=== PATIENT | female | born 1995 | race Caucasian/White ===

== ENCOUNTER 2018-03-03 23:09 | Outpatient (CLI) | payer OTHER ==
[~2018-03-03 23:09] MED LIST: AMBIEN10 MG PO; CLONIDINE HCL0.1 MG PO; MOTRIN800 MG PO; PROZAC20 MG PO; VALIUM2 MG PO; VYVANSE60 MG PO
[2018-03-03 23:30] VITALS: BP 107/68
[2018-03-04 00:33] VITALS: BP 103/68
== END 2018-03-04 01:50 | disposition home or self-care (01) ==
LOC: LDRP-OP 23:09 → 2WEST 23:11
DX: O47.02 False labor before 37 completed weeks of gestation, second trimester (principal); O99.342 Other mental disorders complicating pregnancy, second trimester; F41.9 Anxiety disorder, unspecified; F32.9 Major depressive disorder, single episode, unspecified; O99.332 Smoking (tobacco) complicating pregnancy, second trimester; F17.200 Nicotine dependence, unspecified, uncomplicated; O99.212 Obesity complicating pregnancy, second trimester; E66.9 Obesity, unspecified; Z68.41 Body mass index [BMI] 40.0-44.9, adult; Z3A.24 24 weeks gestation of pregnancy
CPT/HCPCS: 59025; G0378

== ENCOUNTER → 2018-04-05 | Outpatient (CLI) | payer OTHER ==
[~2018-04-05] VITALS: Ht 162.6 cm; Wt 119.0 kg
[~2018-04-05] MED LIST changes: +PRENATAL TABLE1 EAC3 PO
[2018-04-05 16:40] VITALS: BP 118/73
== END | disposition home or self-care (01) ==
LOC: IVINF 16:00
DX: Z34.83 Encounter for supervision of other normal pregnancy, third trimester (principal); Z31.82 Encounter for Rh incompatibility status; Z3A.28 28 weeks gestation of pregnancy; Z67.41 Type O blood, Rh negative
CPT/HCPCS: 96372; J2790

== ENCOUNTER 2018-06-26 16:59 | Inpatient (IN) | payer OTHER ==
[~2018-06-26] VITALS: Ht 162.6 cm; Wt 121.1 kg
[2018-06-26] VITALS (10 sets, daily range): BP systolic 124–159; BP diastolic 58–101
[2018-06-26 18:12] LABS: BASOPHIL (%) 0.2 % (0-1); EOSINOPHIL (%) 0.1 % (0-5); HEMOGLOBIN 11.8 G/DL (11.9-15.5); IMMATURE GRANULOCYTE (%) 0.4 % (0.0-0.7); LYMPHOCYTE (%) 15.1 % (15-42); LYMPHOCYTE COUNT 2.6 K/uL (1.0-2.8); MCH 27.9 PG (29.0-34.0); MCHC 32.8 G/DL (30.0-36.0); MCV 85.1 FL (83-99); MONOCYTE (%) 5.5 % (3-12); NEUTROPHIL (%) 78.7 % (45-76); NEUTROPHIL COUNT 13.7 K/uL (1.8-6.4); PLATELET COUNT 283 K/uL (156-360); RBC DIS.WIDTH-CV 14.6 % (11.8-14.6); RBC DIS.WIDTH-SD 44.6 % (39-53); RED BLOOD COUNT 4.23 M/uL (3.80-5.20); WHITE BLOOD COUNT 17.4 K/uL (4.1-10.2)
[2018-06-26 18:20] LABS: ALBUMIN 3.6 g/dL (3.2-4.8)
[2018-06-26 18:21] LABS: CHLORIDE 106 mEq/L (99-109); POTASSIUM 3.6 mEq/L (3.7-5.4); SODIUM 139 mEq/L (136-147)
[2018-06-26 18:23] LABS: GLUCOSE 107 mg/dL (70-99); TOTAL PROTEIN 7.2 g/dL (6.4-8.3)
[2018-06-26 18:25] LABS: TOTAL BILIRUBIN 0.3 mg/dL (0.0-1.0)
[2018-06-26 18:26] LABS: ALKALINE PHOSPHATASE 188 IU/L (3-129)
[2018-06-26 18:27] LABS: CREATININE 0.7 mg/dL (0.6-1.3); GFR ESTIMATE (CALCULATED) > 59 mL/min/
[2018-06-26 18:28] LABS: UREA NITROGEN (BUN) 8 mg/dL (9-23)
[2018-06-26 18:29] LABS: AST (GOT) 12 IU/L (2-34)
[2018-06-26 18:30] LABS: ALT (GPT) 8 IU/L (3-49)
[2018-06-26] MEDS ORDERED: MOTRIN800 MG PO (18:40)
[2018-06-26 19:20] LABS: THC CANNABINOIDS NEGATIVE (50 ng/mL)
[2018-06-26 19:21] LABS: AMPHETAMINE NEGATIVE (500 ng/mL); BARBITURATES NEGATIVE (200 ng/mL); BENZODIAZEPINES NEGATIVE (150 ng/mL); BUPRENORPHINE NEGATIVE (10 ng/mL); COCAINE NEGATIVE (150 ng/mL); METHADONE NEGATIVE (200 ng/mL); METHAMPHETAMINE NEGATIVE (500 ng/mL); OPIATES (MORPHINE) NEGATIVE (100 ng/mL); OXYCODONE NEGATIVE (100 ng/mL); PHENCYCLIDINE NEGATIVE (25 ng/mL); PROPOXYPHENE NEGATIVE (300 ng/mL); TRICYCLIC ANTIDEPRESSANTS NEGATIVE (300 ng/mL)
[2018-06-27 06:15] LABS: BASOPHIL (%) 0.2 % (0-1); EOSINOPHIL (%) 0.4 % (0-5); EOSINOPHIL COUNT 0.1 K/uL (0-0.3); HEMATOCRIT 29.1 % (36.0-46.0); IMMATURE GRANULOCYTE (%) 0.5 % (0.0-0.7); LYMPHOCYTE (%) 17.6 % (15-42); LYMPHOCYTE COUNT 2.4 K/uL (1.0-2.8); MCH 28.2 PG (29.0-34.0); MCHC 32.3 G/DL (30.0-36.0); MCV 87.4 FL (83-99); NEUTROPHIL (%) 74.3 % (45-76); NEUTROPHIL COUNT 10.2 K/uL (1.8-6.4); PLATELET COUNT 203 K/uL (156-360); RBC DIS.WIDTH-CV 14.8 % (11.8-14.6); RBC DIS.WIDTH-SD 46.8 % (39-53); WHITE BLOOD COUNT 13.7 K/uL (4.1-10.2)
[2018-06-27 06:19] LABS: HEMOGLOBIN 9.4 G/DL (11.9-15.5); RED BLOOD COUNT 3.33 M/uL (3.80-5.20)
[2018-06-27 07:15] VITALS: BP 128/70
[2018-06-27 10:05] LABS: TREPONEMA ANTIBODY NEGATIVE (NEGATIVE)
[2018-06-27 14:40] VITALS: BP 121/75
[2018-06-28 07:06] VITALS: BP 126/83
[2018-06-28 15:22] VITALS: BP 117/64
== END 2018-06-28 19:22 | disposition home or self-care (01) | DRG 775 ==
LOC: LDRP-OP 16:59 → 2WEST 17:00
PROVIDERS: Nurse Practitioner
DX: O71.4 Obstetric high vaginal laceration alone (principal); Z68.41 Body mass index [BMI] 40.0-44.9, adult; F11.20 Opioid dependence, uncomplicated; E66.01 Morbid (severe) obesity due to excess calories; O99.214 Obesity complicating childbirth; O99.334 Smoking (tobacco) complicating childbirth; F17.210 Nicotine dependence, cigarettes, uncomplicated; O99.824 Streptococcus B carrier state complicating childbirth; Z37.0 Single live birth; Z3A.40 40 weeks gestation of pregnancy; O99.324 Drug use complicating childbirth; O62.3 Precipitate labor
CPT/HCPCS: 80053; 82570; 83030; 84156; 85025; 86780; 86850; 86900; 86901; J2790; J7120